=== PATIENT | female | born 1970 | race Caucasian/White ===

== ENCOUNTER → 2021-02-16 | Outpatient (CLI) ==
[~2021-02-16] MED LIST: BIOT1TAB PO; CIDA500T2 PO; MAXA10TA14 PO; NOXI1TAB PO; ORTH1TAB8 PO; OYST500C PO; VITA250T18 PO; VITMTA PO; ZYRTTAB8 PO
== END ==
LOC: M LABSMTC 09:59
PROVIDERS: ATTEND Anesthesiology
DX: Z01.812 Encounter for preprocedural laboratory examination (principal); Z20.822 Contact with and (suspected) exposure to COVID-19

== ENCOUNTER 2021-02-21 08:28 | Observation (INO) | payer BC ==
[~2021-02-21] VITALS: Ht 152.4 cm; Wt 61.2 kg
[2021-02-21] VITALS (9 sets, daily range): BP systolic 108–122; BP diastolic 53–62
[~2021-02-21 08:28] MED LIST changes: +LIDOCAINE 1% MDV 20ML VIAL SQ PRN; +LR 1,000 ML IV ONE; +ceFAZolin SOD 2 GM in IV 1 EA IV ONE
[2021-02-21] MEDS ORDERED: ROCURONIUM BROMIDE 50 MG/5 ML VIAL As Ordered ONE ×2 (08:53→10:51)
[2021-02-21] MEDS ORDERED: LIDOCAINE 2% 100MG/5ML SDV (FOR ANES.) As Ordered ONE (08:53)
[2021-02-21] MEDS ORDERED: SUGAMMADEX SODIUM 500 MG/5 ML VIAL (BRIDION) As Ordered ONE (08:53)
[2021-02-21] MEDS ORDERED: ONDANSETRON 4MG/2ML VIAL As Ordered ONE (08:53)
[2021-02-21] MEDS ORDERED: dexameTHASONE 4 MG/ML 1ML VIAL (J1100 PER 1MG) As Ordered ONE (08:53)
[2021-02-21] MEDS ORDERED: propofoL 200 MG/20 ML VIAL As Ordered ONE (08:53)
[2021-02-21] MEDS ORDERED: MIDAZOLAM INJ 2MG/2ML VIAL (J2250 PER 1MG) As Ordered ONE (08:54)
[2021-02-21] MEDS ORDERED: fentaNYL 250 MCG/5 ML INJECTION (J3010) As Ordered ONE (08:54)
[2021-02-21] MEDS ORDERED: SCOPOLAMINE 1MG TRANSDERMAL PATCH TOP ONE (09:25)
[2021-02-21] MEDS ORDERED: BUPIVACAINE LIPOSOME/PF 1.3% 20ML VIAL (13.3MG/ML)(EXPAREL)(C9290 PER1MG) As Ordered ONE (09:25)
[2021-02-21] MEDS ORDERED: GENTAMICIN SULF 80MG/2ML VIAL As Ordered ONE (09:25)
[2021-02-21] MEDS ORDERED: LIDOCAINE 1% MDV 20ML VIAL As Ordered ONE (09:39)
[2021-02-21] MEDS ORDERED: EPINEPHrine INJ 1 MG/ML 1ML AMP As Ordered ONE (09:39)
[2021-02-21] MEDS ORDERED: HYDROmorphone HCL 2 MG/ML 1ML VIAL As Ordered ONE (10:39)
[2021-02-21] MEDS ORDERED: ACETAMINOPHEN 1000MG 100ML IV BTL (OFIRMEV) (J0131 PER 10MG) As Ordered ONE (10:39)
[2021-02-21] MEDS ORDERED: ePHEDrine SULFATE 25 MG/5 ML(5MG/ML) SYRINGE As Ordered ONE (11:04)
[2021-02-21] MEDS ORDERED: ACETAMINOPHEN TAB 650MG DOSE (2X325MG) PO PRN (12:50)
[2021-02-21] MEDS ORDERED: traMADol 50 MG TAB PO PRN (12:50)
[2021-02-21] MEDS: LR 1,000 ML IV SCH (12:50)
[2021-02-21] MEDS ORDERED: PERCOCET 5MG/325MG TAB PO PRN (12:50)
[2021-02-21] MEDS ORDERED: ONDANSETRON 4MG/2ML VIAL IV PRN ×2 (12:50→13:40)
--- NOTE | 2021-02-21 12:50 | POST-OPPD ---
Postoperative Procedure Note Date Of Procedure: Feb 21, 2021 PREOPERATIVE DIAGNOSIS: Bilateral breast hypertrophy POSTOPERATIVE DIAGNOSIS: same PROCEDURE: Bilateral breast reduction SURGEON: Dr Ceballos CASH TELLER: Dr España ANESTHESIA: general ESTIMATED BLOOD LOSS: 50 cc FINDINGS: large breasts. SPECIMENS: Right breast 299 gm, Left breast 307 gm COMPLICATIONS: none REPLACED: none DRAINS: 10 mm RONDA flat x 2 POSTOPERATIVE CONDITION: stable EMBER CEBALLOS DO Feb 21, 2021 12:50
--- NOTE | 2021-02-21 12:50 | ROOPDOC ---
[facility] Report Of Operation Report of Operation DATE OF PROCEDURE: 02/21/21 PREOPERATIVE DIAGNOSIS: Bilateral breast hypertrophy POSTOPERATIVE DIAGNOSIS: same PROCEDURE: Bilateral breast reduction SURGEON: Dr Ceballos DROP HAMMER SETTER UP: Dr España ANESTHESIA: general ESTIMATED BLOOD LOSS: 50 cc FINDINGS: large breasts. SPECIMENS: Right breast 299 gm, Left breast 307 gm COMPLICATIONS: none REPLACED: none DRAINS: 10 mm RONDA flat x 2 POSTOPERATIVE CONDITION: stable DESCRIPTION OF PROCEDURE: This is a 50-year-old female who upper back and neck pain worsened by large breasts. She is scheduled for bilateral breast reduction. Risks, benefits, and alternatives were discussed with the patient in detail, and she is ready to proceed. The day of surgery, she was marked in the upright position and informed consent was obtained. She measures 30 cm from sternal notch to nipple on both sides, IMF at 21 cm bilaterally. She was brought into the operating room and placed in the supine position. Preoperative antibiotics given. Sequential pneumatic stocking were placed on the lower calves. General anesthesia was induced. She was prepped and draped in the usual sterile fashion. We started our procedure on the right side. Her nipple areolar complex was outlined 42 mm in diameter, and the patient was marked according superior medial pedicle. We started our incision by scoring the nipple areolar complex area, and then dissection was continued until the inferior lateral portion of the breast was resected. We used PEAK cautery and regular cautery. Hemostasis was obtained using electrocautery. The pedicle was de-epithelialized using Gonzalez scissors, good perfusion to the nipple at all times. Wound was irrigated with gentamicin solution. We used Exparel 6 cc for local anesthesia to infiltrate in the Pectoralis muscle as well as the breast tissue. Than, pedicle was turned s uperior to its new location at 21 cm from sternal notch. The mound was re- created using conforming 0 Vicryl sutures. Pillars were closed with interrupted 3-0 Monocryl sutures. The vertical limb was 7 cm. Excess tissue inferiorly was measured and resected, creating the horizontal scar. Nipple area complex was brought into view through the new opening and sutured in place with 3-0 and 4-0 Monocryl sutures and a 5-0 plain. A 10 mm Sammy-Rosa drain was placed through the lateral portion of the horizontal incision. Then we turned our attention to the left side. Her nipple areolar complex was outlined 42 mm in diameter, and the patient was marked according superior medial pedicle. We started our incision by scoring the nipple areolar complex area, and then dissection was continued until the inferior lateral portion of the breast was resected. We used PEAK cautery and regular cautery. Hemostasis was obtained using electrocautery. The pedicle was de-epithelialized using Gonzalez scissors, good perfusion to the nipple at all times. Wound was irrigated with gentamicin solution. We used Exparel 6 cc for local anesthesia to infiltrate in the Pectoralis muscle as well as the breast tissue. Than, pedicle was turned superior to its new location at 21 cm from sternal notch. The mound was re- created using conforming 0 Vicryl sutures. Pillars were closed with interrupted 3-0 Monocryl sutures. The vertical limb was 7 cm. Excess tissue inferiorly was measured and resected, creating the horizontal scar. Nipple area complex was brought into view through the new opening and sutured in place with 3-0 and 4-0 Monocryl sutures and a 5-0 plain. A 10 mm Sammy-Rosa drain was placed through the lateral portion of the horizontal incision. Remaining Exparel injected in the horizontal incision. Total Exparel use 20 cc. Resected tissue sent to pathology in two specimens right and left breast tissue. Right breast 299 grams, left breast 307 grams. Dressings were applied to vertical and horizontal incision: Prinio strips and Dermabond. Nipples areolar complex: Xeroform and a bulky dressing with a surgical bra. Patient was extubated in the operating room without difficulty and was transferred to the recovery room in stable condition. . EMBER CEBALLOS DO Feb 21, 2021 12:50
[2021-02-21] MEDS ORDERED: METOCLOPRAMIDE INJ 10MG/2ML VIAL (J2765 PER 1) As Ordered ONE (13:33)
[2021-02-21] MEDS ORDERED: oxyCODONE 5MG TAB PO PRN (13:40)
[2021-02-21] MEDS ORDERED: fentaNYL 100 MCG/2 ML INJECTION (J3010) IV PRN (13:40)
[2021-02-21] MEDS ORDERED: LR 1,000 ML IV SCH (13:40)
[2021-02-21] MEDS ORDERED: METOCLOPRAMIDE INJ 10MG/2ML VIAL (J2765 PER 1) IV PRN (13:40)
[2021-02-21] MEDS: ceFAZolin SOD 1 GM in D5W MINI-BAG PLUS 50 ML IV SCH (17:31)
[2021-02-22] MEDS: LR 1,000 ML IV SCH (02:32)
[2021-02-22] MEDS: ceFAZolin SOD 1 GM in D5W MINI-BAG PLUS 50 ML IV SCH (02:32)
[2021-02-22 06:31] VITALS: BP 120/62
--- NOTE | 2021-02-22 11:28 | IPNPDOC ---
Subjective General Date Seen: Feb 22, 2021 Subject Chief Complaint/History The patient is a 50-year-old female admitted with a reason for visit of Bilateral Breast Hypertrophy. Patient s/p BBR POD 1. Doing well. Pain controlled. Ambulating, tolerating regular diet. Current Medications Current Medications Current Medications Medications (Trade) Dose Ordered Sig/Khloe Route PRN Reason Start Time Stop Time Status Last Admin Dose Admin Acetaminophen (Tylenol Tab) 650 mg Q6H PRN PO MILD PAIN (PS 1-4) 02/21/21 12:50 Cefazolin Sodium 1 gm/Dextrose 50 ml @ 100 mls/hr Q8H IV 02/21/21 18:00 02/22/21 02:32 Fentanyl Citrate (Sublimaze) 25 mcg Q5MP PRN IV PAIN LEVEL 8-10 02/21/21 13:40 02/21/21 15:40 DC Lactated Ringer's 1,000 ml @ 75 mls/hr [id number] IV 02/21/21 12:50 02/22/21 02:32 Lactated Ringer's 1,000 ml @ 100 mls/hr Q10H IV 02/21/21 13:40 02/21/21 15:40 DC Lidocaine HCl (LIDOCAINE 1% MDV 20ml) 0.1 ml ONCE PRN SQ DISCOMFORT BEFORE IV START 02/21/21 06:00 02/21/21 13:41 DC Metoclopramide HCl (REGLAN INJection) 10 mg Q6HP PRN IV NAUSEA OR VOMITING 02/21/21 13:40 02/21/21 13:48 DC 02/21/21 13:38 Ondansetron HCl (ZOFRAN INJection) 4 mg Q4H PRN IV NAUSEA OR VOMITING 02/21/21 12:50 Ondansetron HCl (ZOFRAN INJection) 4 mg Q4HP PRN IV NAUSEA OR VOMITING 02/21/21 13:40 02/21/21 15:40 DC Oxycodone HCl (Roxicodone, Oxyir) 5 mg ASDIRECTED PRN PO PAIN LEVEL 1-4 02/21/21 13:40 02/21/21 15:40 DC Oxycodone/ Acetaminophen (Percocet 5mg/ 325mg Tablet) 2 tab Q4HP PRN PO SEVERE PAIN (PS 8-10) 02/21/21 12:50 Tramadol HCl (Ultram) 50 mg Q4HP PRN PO MODERATE PAIN (PS 5-7) 02/21/21 12:50 Allergies Coded Allergies: No Known Allergies (Unverified , 02/14/21) Objective Physical Examination Examination GENERAL APPEARANCE:Patient seen, laying in bed, awake, alert, and oriented. Comfortable, in no acute distress. SKIN: Warm and moist. BREAST: Right and left soft, non-tender incisions intact. RONDA drains: 50/50 cc/24 hr. NAC: Viable, warm, symmetrical, mild post-op ecchymosis, no expanding hematoma. HEENT: Normocephalic, atraumatic. [place] palpebral conjunctiva, anicteric sclerae. Lips and mucosa appear moist. NECK: Supple, no thyromegaly. No obvious jugular venous distention. LUNGS: Clear to auscultation bilaterally. No wheezing appreciated. HEART: No chest wall abnormalities. Regular rate and rhythm with no murmurs appreciated. ABDOMEN: Abdomen is soft, non-tender, non-distended. EXTREMITIES: No edema identified. No calf tenderness. Vital Signs Vital Signs Date Time Temp Pulse Resp B/P (MAP) Pulse Ox O2 Delivery O2 Flow Rate FiO2 02/22/21 06:31 98.5 87 18 120/62 (81) 95 Room Air I&Os I&O- Last 24 Hours up to 6 AM 02/22/21 05:59 Intake Total 1940 ml Output Total 200 ml Balance 1740 ml Impression Status post bilateral breast reduction postop day 1. Stable for discharge. Dressings changed today, instructions given for discharge. Follow-up with plastic surgery next week. Plan / VTE VTE Prophylaxis Ordered?: Yes EMBER CEBALLOS DO Feb 22, 2021 11:28
[2021-02-22] MEDS ORDERED: TRAM50TA2 PO (11:30)
== END 2021-02-22 13:30 | disposition home or self-care (01) ==
LOC: M SDC 08:28 → M MS5PR 08:29 → EDUNIT# 10:00 → M MS5PR 14:10 → M SDC 14:10 → M MS5PR 02-22 13:30 → M SDC 02-22 13:30
PROVIDERS: ADMIT Plastic Surgery Surgery of the Hand; ATTEND Plastic Surgery Surgery of the Hand
DX: N62 Hypertrophy of breast (principal); Z79.899 Other long term (current) drug therapy
CPT/HCPCS: 19318; 81025; 88305; 96361; 96365; 96366; C9290; J0131; J0690; J1100; J1170; J1580; J2250; J2405; J2765; J3010